=== PATIENT | male | born 1960 | race Two or more races ===

== ENCOUNTER 2018-06-13 18:52 | Emergency (ER) | payer OTHER ==
[~2018-06-13] VITALS: Ht 170.2 cm; Wt 88.9 kg
[~2018-06-13 18:52] MED LIST: SINGULAIR10 MG PO
[2018-06-13] MEDS ORDERED: COZAAR50 MG (19:07)
[2018-06-13] MEDS ORDERED: FLONASE16 GM (19:07)
[2018-06-14] MEDS ORDERED: LOSARTAN-HCTZ1 EACH PO (01:32)
== END 2018-06-14 01:25 | disposition home or self-care (01) ==
LOC: ER 18:52
DX: I16.0 Hypertensive urgency (principal); I10 Essential (primary) hypertension; R07.89 Other chest pain

== ENCOUNTER 2019-01-09 19:41 | Emergency (ER) | payer OTHER ==
[~2019-01-09] VITALS: Ht 170.2 cm; Wt 88.9 kg
[~2019-01-09 19:41] MED LIST changes: +COZAAR50 MG; +FLONASE16 GM; +LOSARTAN-HCTZ1 EACH PO
== END 2019-01-09 21:37 | disposition home or self-care (01) ==
LOC: ER 19:41
DX: M25.552 Pain in left hip (principal)

== ENCOUNTER 2024-09-12 10:58 | Emergency (ER) | payer OTHER ==
[~2024-09-12] VITALS: Ht 170.2 cm; Wt 88.5 kg
[2024-09-12] MEDS ORDERED: LOSARTAN POTAS100 MG PO (11:21)
[2024-09-12] MEDS ORDERED: HYDROCHLOROTHIA25 MG PO (11:21)
[2024-09-12] MEDS ORDERED: KETOROLAC TROMETHAMINE 30 MG VIAL IM STA (13:27)
[2024-09-12] MEDS ORDERED: ORPHENADRINE CITRATE 30 MG/ML AMPUL IM STA (13:27)
[2024-09-12] MEDS ORDERED: KETOROLAC TROMETHAMINE 60 MG VIAL IM ONE (13:31)
[2024-09-12] MEDS ORDERED: ORPHENADRINE CITRATE 30 MG/ML AMPUL ONE (13:31)
== END 2024-09-12 13:40 | disposition home or self-care (01) ==
LOC: ER 11:01
DX: M54.9 Dorsalgia, unspecified (principal)